=== PATIENT | male | born 1960 | race Caucasian/White ===

== ENCOUNTER 2019-12-18 08:09 | Emergency (ER) | payer BC, OTHER ==
[2019-12-18 08:18] VITALS: BMI 31.6
[2019-12-18] MEDS ORDERED: ACETAMINOPHEN 1000 MG/100 ML VIAL (NON FORMULARY) IVPB ONE (08:27)
[2019-12-18] MEDS ORDERED: SODIUM CHLORIDE 1,000 ML IV STA (08:27)
[2019-12-18] MEDS ORDERED: ONDANSETRON 4 MG/2 ML VIAL IVPUSH ONE (08:28)
[2019-12-18] MEDS ORDERED: FAMOTIDINE 20 MG/50 ML IVPB 20 MG/50 ML MG IVPB ONE ×2 (08:28→11:16)
--- NOTE | 2019-12-18 08:32 | PDOC ---
History of Present Illness - General Chief Complaint: Pain Stated Complaint: ABD PAIN Time Seen by Provider: 12/18/19 08:18 History Source: Patient Exam Limitations: No Limitations Past History - Travel History Traveled outside of the country in the last 30 days: No Close contact w/someone who was outside of country & ill: No - Medical History Allergies/Adverse Reactions: Allergies Allergy/AdvReac Type Severity Reaction Status Date / Time No Known Allergies Allergy Verified 12/18/19 08:14 Home Medications: Ambulatory Orders NK [No Known Home Medication] 12/18/19 COPD: No HTN: Yes (no medical coverage/no meds.) - Psycho-Social/Smoking History Smoking History: Unknown if ever smoked - Substance Abuse Hx (Audit-C & DAST Scrn) How often the patient has a drink containing alcohol: Never Score: In Men: 4 or > Positive; In Women: 3 or > Positive: 0 Screen Result (Pos requires Nsg. Audit-10AR): Negative In the last yr the pt used illegal drug/Rx for NonMed reason: No Score: Yes response is considered Positive: 0 Screen Result (Positive result requires Nsg. DAST-10): Negative Review of Systems - Review of Systems Able to Perform ROS?: Yes Comments:: 12/18/19 08:31 CONSTITUTIONAL: Absent: fever, chills, diaphoresis, generalized weakness, malaise, loss of appetite HEENT: Absent: rhinorrhea, nasal congestion, throat pain, throat swelling, difficulty swallowing, mouth swelling, ear pain, eye pain, visual changes CARDIOVASCULAR: Absent: chest pain, loss of consciousness, palpitations, irregular heart rate, peripheral edema RESPIRATORY: Absent: cough, shortness of breath, dyspnea with exertion, orthopnea, wheezing, stridor, hemoptysis GASTROINTESTINAL: Present: Abdominal pain, nausea Absent: abdominal distension, vomiting, diarrhea, constipation, melena, hematochezia GENITOURINARY: Absent: dysuria, frequency, urgency, hesitancy, hematuria, flank pain, genital pain MUSCULOSKELETAL: Absent: myalgia, arthralgia, joint swelling SKIN: Absent: rash, itching, pallor HEMATOLOGIC/IMMUNOLOGIC: Absent: easy bleeding, easy bruising, lymphadenopathy, frequent infections ENDOCRINE: Absent: unexplained weight gain, unexplained weight loss, heat intolerance, cold intolerance NEUROLOGIC: Absent: headache, focal weakness or paresthesias, dizziness, unsteady gait, seizure, mental status changes, bladder or bowel incontinence PSYCHIATRIC: Absent: anxiety, depression, suicidal or homicidal ideation, hallucinations. Is the patient limited Slovak proficient: No *Physical Exam - Vital Signs Last Vital Signs Temp Pulse Resp BP Pulse Ox 97 F L 135 H 18 192/94 H 97 12/18/19 08:16 12/18/19 08:16 12/18/19 08:16 12/18/19 08:16 12/18/19 08:16 - Physical Exam 12/18/19 08:31 GENERAL: Well developed, well nourished. Awake and alert. No acute distress. HEENT: Normocephalic, atraumatic. PERRLA, EOMI. No conjunctival pallor. Sclera are non- icteric. Moist mucous membranes. Oropharynx is clear. NECK: Supple. Full ROM. No lymphadenopathy. CARDIOVASCULAR: Regular rate and rhythm. No murmurs, rubs, or gallops. Distal pulses are 2+ and symmetric. PULMONARY: No evidence of respiratory distress. Lungs clear to auscultation bilaterally. No wheezing, rales or rhonchi. ABDOMINAL: Mid abdominal pain with questionable Hand's sign. No Rovsing sign, psoas sign, obturator sign. Soft. Mildly distended with (+) guarding. No rebound. No organomegaly. Normoactive bowel sounds. MUSCULOSKELETAL Normal range of motion at all joints. No bony deformities or tenderness. No CVA tenderness. EXTREMITIES: No cyanosis. No clubbing. No edema. No calf tenderness. SKIN: Warm and dry. Normal capillary refill. No rashes. No jaundice. NEUROLOGICAL: Alert, awake, appropriate. Cranial nerves 2-12 intact. No deficits to light touch and temperature in face, upper extremities and lower extremities. No motor deficits in the in face, upper extremities and lower extremities. Normoreflexic in the upper and lower extremities. Normal speech. Toes are down-going bilaterally. Gait is normal without ataxia. PSYCHIATRIC: Cooperative. Good eye contact. Appropriate mood and affect. Heart Score/ECG Review - ECG Intrepretation Rhythm: Regular Rhythm Comment:: 12/18/19 09:38 Sinus Tachycardia - [place]: Right [place] Deviation - ECG Impressions Normal ECG: No Non-specific ST Elevation: No Ischemic Changes: No Tachycardia: Sinus (rate 107) ED Treatment Course - LABORATORY CBC & Chemistry Diagram: 12/18/19 08:55 12/18/19 08:55 Medical Decision Making - Critical Care Time Total Critical Care Time (minutes): 30 Critical Care Statement: The care of this patient involved high complexity decision making to prevent further life threatening deterioration of the patient's condition and/or to evaluate & treat vital organ system(s) failure or risk of failure. - Medical Decision Making 12/18/19 08:32 The patient is a 59-year-old male with past medical history of hypertension, untreated, presents to the ER for abdominal pain. He states that his pain started approximately 1 week ago. He notes that the pain has been colicky in nature. He states that a week ago he had the pain for 2 days and then the pain dissipated for 2 days and returned. He states that the pain was the worst last night and he was unable to sleep due to the pain. He has tried taking ibuprofen, Tylenol, Pepcid at home with no relief of his symptoms. He states he is feels nauseous but unable to vomit. Denies fevers, chills, chest pain, sore throat, difficulty breathing, shortness of breath, dysuria, hematuria, hematoche barbara. A/P: Abdominal pain On exam vital signs are notable for a blood pressure of 192/80, tachy to 135. Possibly due to pain? EKG, labs, CTAP, urine ordered. Broad differential diagnosis to include but not limited to pancreatitis, cholecystitis, cholangitis, gastritis, PUD, diverticulitis, SBO, ischemic bowel, abscess, appendicitis, UTI, pyelonephritis, renal stone, AAA. Ofirmev, fluids Zofran ordered Reevaluate 12/18/19 12:09 Pt still with pain after ofirmev, Morphine ordered Lactic 2.5, VBG ph 7.27 Septic order set ordered; blood cultures drawn. Empiric zosyn ordered Pt finished drinking, 13:[address] 12/18/19 15:34 Dr. Tran called with CT results. In comparison to CT angiography performed on 11/17/2009 interval development of either complete or near-complete completion of the superior mesenteric artery is noted. On current exam note is made of concentric wall thickening involving multiple jejunal and ileal small bowel loops suggestive of acute ischemic disease given the previously described superior mesenteric artery occlusive disease infectious or inflammatory disease or noninfectious enteritis is less likely. Page Dr. Lemons, states that this is a vascular issue. Page Dr. Vikas Garcia on-call vascular surgery 12/18/19 15:[address] Garcia 12/18/19 16:[address] Garcia 12/18/19 16:[address] Garcia, recommending transfer given need for higher level of care as pathology of his occlusion is unsure at this time (chronic vs acute) and need for possible IR intevention needing higher level of care. [facility] paged; sign out given to JENNIFER López. Pt. : Mrs. Russell,[phone] Discharge - Discharge Information Problems reviewed: Yes Clinical Impression/Diagnosis: Ischemic bowel disease, Occlusion of superior mesenteric artery Condition: Guarded Disposition: TRANSFER ACUTE CARE/OTHER HOSP - Follow up/Referral Referrals: Diandra Nair [Primary Care Provider] - - Patient Discharge Instructions - Post Discharge Activity
[2019-12-18] MEDS ORDERED: ACETAMINOPHEN INJECTION 100 ML IVPB ONE (08:35)
[2019-12-18 09:25] LABS: BASO % 0.2 % (0-2.0); HEMATOCRIT 44.1 % (35.4-49); HEMOGLOBIN 15.2 GM/dL (11.7-16.9); LYMPH % 3.1 % (8-40); MCH 30.7 pg (25.7-33.7); MCHC 34.4 g/dl (32.0-35.9); MEAN CELL VOLUME 89.2 fl (80-96); MEAN PLT VOLUME 10.3 fl (7.5-11.1); MONO % 8.7 % (3.8-10.2); PLATELET COUNT 289 K/MM3 (134-434); RBC 4.95 M/mm3 (4.00-5.60); RDW 13.5 % (11.9-15.9); WHITE BLOOD COUNT 24.6 K/mm3 (4.0-10.0)
[2019-12-18 09:32] LABS: INR 1.1 (0.83-1.09)
[2019-12-18 09:56] LABS: ALBUMIN 4.4 g/dl (3.4-5.0); ALK PHOS 118 U/L (45-117); ANION GAP 14 MMOL/L (8-16); BILIRUBIN,TOTAL 0.6 mg/dL (0.2-1); BLOOD UREA NITROGEN 17.6 mg/dL (7-18); CALCIUM 9.5 mg/dL (8.5-10.1); CHLORIDE 103 mmol/L (98-107); CO2 21 mmol/L (21-32); CREATININE 1.3 mg/dL (0.55-1.3); LIPASE 74 U/L (73-393); POTASSIUM 4.2 mmol/L (3.5-5.1); SGOT/AST 19 U/L (15-37); SGPT/ALT 18 U/L (13-61); SODIUM 137 mmol/L (136-145); TOT PROT 8.4 g/dl (6.4-8.2)
[2019-12-18] MEDS ORDERED: SODIUM CHLORIDE 2,585 ML IV ONE (10:02)
[2019-12-18 10:15] LABS: GLUCOSE,RANDOM 148 mg/dL (74-106)
[2019-12-18 11:23] LABS: VENOUS O2 SATURATION 35.4 % (70-80); VENOUS PCO2 42.9 mmHg (38-52); VENOUS PH 7.294 (7.310-7.410)
[2019-12-18] MEDS ORDERED: morphine CARPU-JECT 4 MG/1 ML DISP.SYRIN IVPUSH ONE ×3 (11:30→17:35)
[2019-12-18 11:40] LABS: ANISOCYTOSIS 0; MACROCYTOSIS 0; PLATELET ESTIMATE NORMAL
[2019-12-18 11:56] LABS: EPI CELLS 16 /uL (0-25.1); HYALINE CASTS 14 /uL (0-3.1); URINE APPEARANCE CLEAR; URINE BACTERIA 5 /uL (0-1359); URINE BILIRUBIN NEGATIVE (NEGATIVE); URINE COLOR YELLOW; URINE GLUCOSE (UA) NEGATIVE (NEGATIVE); URINE KETONE 1+ (NEGATIVE); URINE LEUK ESTERASE NEGATIVE (NEGATIVE); URINE NITRITE NEGATIVE (NEGATIVE); URINE PROTEIN 1+ (NEGATIVE); URINE RBC 11 /uL (0-23.9); URINE UROBILINOGEN 0.2 mg/dL (0.2-1.0); URINE WBC 7 /uL (0-25.8)
[2019-12-18] MEDS ORDERED: PIPERACILLIN/TAZOB 3.375 GM 3.375 GM in DEXTROSE 5%-WATER - 50 ML IVPB ONE (12:02)
[2019-12-18] MEDS ORDERED: PIPERACILLIN/TAZOB 3.375 GM 3.375 GM/50 ML BAG IVPB ONE (12:17)
[2019-12-18] MEDS ORDERED: morphine SULFATE 4 MG/ML VIAL ONE ×2 (12:17→17:49)
--- NOTE | 2019-12-18 12:56 | EKG ---
Test Reason : Blood Pressure : / mmHG Vent. Rate : 107 BPM Atrial Rate : 107 BPM P-R Int : 160 ms QRS Dur : 078 ms QT Int : 352 ms P-R-T Axes : 065 059 051 degrees QTc Int : 469 ms SINUS TACHYCARDIA SEPTAL INFARCT , AGE UNDETERMINED ABNORMAL ECG WHEN COMPARED WITH ECG OF 22-FEB-2011 16:30, NO SIGNIFICANT CHANGE WAS FOUND Confirmed by MD IRENE, KIEL ([id number]) on 12/18/2019 12:56:09 PM Referred By: Confirmed By:KIEL BONILLA MD
--- NOTE | 2019-12-18 17:30 | PDOC ---
*Physical Exam - Vital Signs Last Vital Signs Temp Pulse Resp BP Pulse Ox 98.1 F 109 H 22 H 186/87 H 96 12/18/19 12:00 12/18/19 15:43 12/18/19 15:43 12/18/19 15:43 12/18/19 15:43 - Physical Exam Gastrointestinal/Abdominal: positive: Tender (Diffuse upper abdomen with guarding present.), Guarding. negative: Soft Musculoskeletal: positive: Normal Inspection. negative: CVA Tenderness ED Treatment Course - LABORATORY CBC & Chemistry Diagram: 12/18/19 08:55 12/18/19 08:55 - ADDITIONAL ORDERS Additional order review: Laboratory Results 12/18/19 12/18/19 12/18/19 13:41 10:45 10:45 PT with INR INR VBG pH 7.294 L POC VBG pCO2 42.9 POC VBG pO2 23.4 L VBG HCO3 20.4 L VBG O2 Sat (Lucy) 35.4 L VBG Base Excess -6.0 L Sodium Potassium Chloride Carbon Dioxide Anion Gap BUN Creatinine Est GFR (CKD-EPI)AfAm Est GFR (CKD-EPI)NonAf Random Glucose Lactic Acid 1.6 Calcium Total Bilirubin AST ALT Alkaline Phosphatase Creatine Kinase Troponin I Total Protein Albumin Lipase Urine Color Yellow Urine Appearance Clear Urine pH 5.0 Ur Specific [place] 1.027 Urine Protein 1+ H Urine Glucose (UA) Negative Urine Ketones 1+ H Urine Blood 1+ H Urine Nitrite Negative Urine Bilirubin Negative Urine Urobilinogen 0.2 Ur Leukocyte Esterase Negative Urine WBC (Auto) 7 Urine RBC (Auto) 11 Urine Casts (Auto) 14 U Pathogenic Cast Auto U Epithel Cells (Auto) 16 Urine Bacteria (Auto) 5 12/18/19 12/18/19 12/18/19 08:55 08:55 08:55 PT with INR 13.00 INR 1.10 H VBG pH POC VBG pCO2 POC VBG pO2 VBG HCO3 VBG O2 Sat (Lucy) VBG Base Excess Sodium 137 Potassium 4.2 Chloride 103 Carbon Dioxide 21 Anion Gap 14 BUN 17.6 Creatinine 1.3 Est GFR (CKD-EPI)AfAm 68.25 Est GFR (CKD-EPI)NonAf 58.89 Random Glucose 148 H Lactic Acid 2.5 H* Calcium 9.5 Total Bilirubin 0.6 AST 19 ALT 18 Alkaline Phosphatase 118 H Creatine Kinase 54 Troponin I < 0.02 Total Protein 8.4 H Albumin 4.4 Lipase 74 Urine Color Urine Appearance Urine pH Ur Specific [place] Urine Protein Urine Glucose (UA) Urine Ketones Urine Blood Urine Nitrite Urine Bilirubin Urine Urobilinogen Ur Leukocyte Esterase Urine WBC (Auto) Urine RBC (Auto) Urine Casts (Auto) U Pathogenic Cast Auto U Epithel Cells (Auto) Urine Bacteria (Auto) 12/18/19 08:55 RBC 4.95 MCV 89.2 MCHC 34.4 RDW 13.5 MPV 10.3 Neutrophils % 88.0 H Lymphocytes % 3.1 L Monocytes % 8.7 Eosinophils % 0.0 Basophils % 0.2 - Medications Given in the ED: ED Medications Discontinued Medications Generic Name Dose Route Start Last Admin Trade Name Freq PRN Reason Stop Dose Admin Acetaminophen 1,000 mg 12/18/19 08:27 12/18/19 08:50 Ofirmev Injection - IVPB 12/18/19 08:28 1,000 mg ONCE ONE Administration Sodium Chloride 1,000 mls @ 1,000 mls/hr 12/18/19 08:27 12/18/19 08:50 Normal Saline - IV 12/18/19 09:26 1,000 mls/hr ASDIR STA Administration Famotidine/Sodium Chloride 20 mg in 50 mls @ 100 mls/hr 12/18/19 08:28 12/18/19 10:30 Pepcid 20 Mg Premixed Ivpb - IVPB 12/18/19 08:57 100 mls/hr ONCE ONE Administration Sodium Chloride 2,585 mls @ 1,292.5 mls/hr 12/18/19 10:02 12/18/19 10:40 Normal Saline - 30 ml/kg infuse over 2 hr (2585 ml) 12/18/19 12:01 1,292.5 mls/hr IV Administration ONCE ONE Piperacillin Sod/Tazobactam 50 mls @ 100 mls/hr 12/18/19 12:02 12/18/19 12:30 Sod 3.375 gm/ Dextrose IVPB 12/18/19 12:31 100 mls/hr ONCE ONE Administration Protocol Morphine Sulfate 4 mg 12/18/19 11:30 12/18/19 12:15 Morphine Injection - IVPUSH 12/18/19 11:31 4 mg ONCE ONE Administration Ondansetron HCl 4 mg 12/18/19 08:28 12/18/19 08:55 Zofran Injection IVPUSH 12/18/19 08:29 4 mg ONCE ONE Administration ED Progress Note - Progress Note Progress Note: 12/18/19 17:32 Received patient from XNE[facility] Doran. Briefly this is a 59-year-old male past medical history of hypertension currently not being treated presents emergency department for evaluation of 1 week of abdominal pain which came on for 2 days was relieved with some [id number] therapies and disappeared for 2 days. Patient then returned 3 days ago and has gotten progressively worse since that time. Patient describes the pain is a slight colicky sensation. Laboratory testing notable for leukocytosis at 24.6 with shift. ABG shows acidosis 7.29 and a lactic acidosis 2.5 on arrival. Patient has received IV fluids and currently has a lactic acid of 1.6. Patient is received 4.5 g of Zosyn IV. 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 Concentric wall thickening involving multiple j ejunal and ileal small bowel loops suggestive of acute ischemic disease given superior mesenteric artery occlusive disease. Patient is to be transferred to [facility] for continued ev aluation of SMA occlusion and ischemic bowel. Medical Decision Making - Medical Decision Making 12/18/19 17:32 Transfer center at [facility] has been contacted and due to severity of patient's illness patient was auto accepted. Dr. Kitchen is the ER physician who will be responsible for the patient's care. Patient is aware of transfer to [facility] and understands the need for definitive treatment not provided here at [facility]. Facesheet faxed. 12/18/19 17:50 Case has been discussed with Dr. Morales of [facility] emergency department who accepts patient for ER to ER transfer. Discharge - Discharge Information Problems reviewed: Yes Clinical Impression/Diagnosis: Ischemic bowel disease, Occlusion of superior mesenteric artery Condition: Guarded - Follow up/Referral Referrals: Diandra Nair [Primary Care Provider] - - Patient Discharge Instructions - Post Discharge Activity
[2019-12-18 18:42] VITALS: BP 169/81; PULSE 108
[2019-12-18 18:45] VITALS: TEMP 97.9
== END 2019-12-18 18:40 | disposition short-term general hospital (02) ==
LOC: JER 08:09
PROC: 3E03329 Introduction of Other Anti-infective into Peripheral Vein, Percutaneous Approach (ICD-10-PCS; principal; 2019-12-18)
PROC: 3E033GC Introduction of Other Therapeutic Substance into Peripheral Vein, Percutaneous Approach (ICD-10-PCS; 2019-12-18)
PROC: 3E0337Z Introduction of Electrolytic and Water Balance Substance into Peripheral Vein, Percutaneous Approach (ICD-10-PCS; 2019-12-18)
DX: K55.059 Acute (reversible) ischemia of intestine, part and extent unspecified (principal); K55.1 Chronic vascular disorders of intestine
CPT/HCPCS: 36415; 74177-TC; 80053; 81003; 82550; 82803; 83605; 83690; 84484; 85025; 85610; 87040; 87086; 93005; 93010; 99285-25; J0131; Q9967

== ENCOUNTER 2024-04-12 10:21 | Emergency (ER) | payer BC, OTHER ==
[2024-04-12 10:53] VITALS: RESP 16; TEMP 98.1; BMI 26.9
[2024-04-12 11:39] LABS: BASO % 0.6 % (0-2.0); EOS % 1.1 % (0-4.5); HEMATOCRIT 40.2 % (35.4-49); HEMOGLOBIN 13.9 GM/dL (11.7-16.9); LYMPH % 21.9 % (8-40); MCH 31.1 pg (25.7-33.7); MCHC 34.6 g/dl (32.0-35.9); MEAN CELL VOLUME 89.7 fl (80-96); MEAN PLT VOLUME 8.8 fl (7.5-11.1); MONO % 11.7 % (3.8-10.2); NEUT % 64.7 % (42.8-82.8); PLATELET COUNT 271 10^3/uL (134-434); RBC 4.48 M/mm3 (4.00-5.60); RDW 14.1 % (11.9-15.9); WHITE BLOOD COUNT 9.3 K/mm3 (4.0-10.0)
[2024-04-12 11:45] LABS: INR 1.04 (0.83-1.09)
[2024-04-12 11:47] LABS: ACTIVATED PTT 35.2 SECONDS (25.2-36.5)
[2024-04-12 11:59] LABS: POTASSIUM 3.8 mmol/L (3.5-5.1)
[2024-04-12 12:01] LABS: BLOOD UREA NITROGEN 14.4 mg/dL (7-18)
[2024-04-12 12:04] LABS: CREATININE 0.9 mg/dL (0.55-1.3)
[2024-04-12 12:05] LABS: BILIRUBIN,TOTAL 0.7 mg/dL (0.2-1); TOT PROT 7.4 g/dl (6.4-8.2)
[2024-04-12 12:09] LABS: N-TERMINAL BNP 321.1 pg/ml (5-125)
[2024-04-12] MEDS ORDERED: ALPRAZolam 1 MG TABLET ONE (12:43)
[2024-04-12] MEDS ORDERED: ALPRAZolam 0.25 MG TABLET ONE (12:44)
[2024-04-12] MEDS: ALPRAZolam 1 MG TABLET PO ONE (12:47)
[2024-04-12 13:07] VITALS: BP 144/72; PULSE 87
== END 2024-04-12 13:16 | disposition home or self-care (01) ==
LOC: JER 10:21
DX: R00.2 Palpitations (principal); F41.9 Anxiety disorder, unspecified
CPT/HCPCS: 36415; 71046-TC-FY; 80053; 83880; 84439; 84443; 84484; 85025; 85610; 85730; 93005; 93010; 99285-25